=== PATIENT | female | born 1995 ===

== ENCOUNTER → 2017-06-08 | Outpatient (CLI) | payer OTHER | END | disposition home or self-care (01) | LOC: LAB 12:24 | DX: R94.5 Abnormal results of liver function studies (principal); A00-B99 Certain infectious and parasitic diseases ==

== ENCOUNTER 2017-09-28 13:32 | Outpatient (CLI) | payer OTHER | END 2017-09-28 14:00 | disposition home or self-care (01) | LOC: LAB 13:32 | DX: A00-B99 Certain infectious and parasitic diseases (principal) ==

== ENCOUNTER 2017-09-30 16:28 | Emergency (ER) | payer OTHER ==
[~2017-09-30] VITALS: Ht 162.6 cm; Wt 59.9 kg
== END 2017-09-30 23:58 | disposition home or self-care (01) ==
LOC: ER 16:28
DX: N39.0 Urinary tract infection, site not specified (principal)

== ENCOUNTER 2018-02-08 16:56 | Outpatient (CLI) | payer OTHER | END 2018-02-08 17:06 | disposition home or self-care (01) | LOC: LAB 16:56 | DX: Z11.3 Encounter for screening for infections with a predominantly sexual mode of transmission (principal) ==

== ENCOUNTER 2018-02-25 14:09 | Emergency (ER) | payer OTHER ==
[~2018-02-25] VITALS: Ht 162.6 cm; Wt 59.9 kg
== END 2018-02-25 17:56 | disposition home or self-care (01) ==
LOC: ER 14:09
DX: J35.01 Chronic tonsillitis (principal)

== ENCOUNTER 2018-03-18 00:13 | Emergency (ER) | payer OTHER ==
[~2018-03-18] VITALS: Ht 162.6 cm; Wt 59.9 kg
[2018-03-18] MEDS ORDERED: LEVSIN/SL0.125 MG SL (04:06)
[2018-03-18] MEDS ORDERED: PEPCID40 MG PO (04:06)
== END 2018-03-18 04:17 | disposition home or self-care (01) ==
LOC: ER 00:13
DX: R10.11 Right upper quadrant pain (principal)

== ENCOUNTER 2018-08-04 02:48 | Emergency (ER) | payer OTHER ==
[~2018-08-04] VITALS: Ht 162.6 cm; Wt 59.9 kg
[~2018-08-04 02:48] MED LIST: LEVSIN/SL0.125 MG SL; PEPCID40 MG PO
== END 2018-08-04 06:19 | disposition home or self-care (01) ==
LOC: ER 02:48
DX: N30.80 Other cystitis without hematuria (principal)